=== PATIENT | female | born 1935 | race Hispanic/Latino ===

== ENCOUNTER 2023-05-20 11:57 | Inpatient (IN) | payer OTHER ==
[~2023-05-20] VITALS: Ht 144.8 cm; Wt 68.7 kg
[~2023-05-20 11:57] MED LIST: INSLAN SQ; LISI5TAB21 PO; METF-444 PO; SIMV40TA59 PO
[2023-05-20] MEDS ORDERED: ZOSYN 3.375GM+NS 50ML 50 ML IVPB ONE ×2 (17:00)
[2023-05-20] MEDS ORDERED: LEVOFLOXACIN 750 MG/D5W 150 ML 150 ML IV ONE ×2 (17:00)
[2023-05-20] MEDS ORDERED: METRONIDAZOLE 500MG/100ML BAG 100 ML IVPB ONE ×2 (17:32)
[2023-05-20] MEDS ORDERED: IOHEXOL-350 75 ML VIAL IV ONE ×2 (18:03)
[2023-05-20] MEDS ORDERED: 0.9%NACL 1000ML 1,000 ML IV ONE ×2 (20:00)
[2023-05-20] MEDS ORDERED: FAMOTIDINE 20MG TAB PO ONE ×2 (20:22)
[2023-05-21] MEDS ORDERED: MORPHINE 2 MG SYG IVP ONE ×6 (01:02→13:15)
[2023-05-21] MEDS ORDERED: METRONIDAZOLE 500MG/100ML BAG 100 ML IVPB ONE ×4 (06:46→13:13)
[2023-05-21] MEDS ORDERED: INSULIN HUMULIN R 100 UNIT/ML 3ML SQ ONE ×5 (06:47→11:34)
[2023-05-21] MEDS ORDERED: ACETAMINOPHEN 325 MG TAB PO ONE ×2 (07:11)
[2023-05-21] MEDS ORDERED: LEVOFLOXACIN 250 MG/D5W 50ML 50 ML IVPB ONE ×2 (10:26)
[2023-05-21] MEDS ORDERED: LABETALOL 20MG VIAL IV ONE ×2 (10:27)
[2023-05-21 20:00] VITALS: BP 144/59; PULSE 82; RESP 17; O2SAT 98
[2023-05-21] MEDS ORDERED: LABETALOL 20MG VIAL IV PRN (23:00)
[2023-05-21] MEDS ORDERED: DEXTROSE 50%-WATER 50 ML DISP.SYRIN IV PRN (23:00)
[2023-05-21] MEDS ORDERED: ONDANSETRON 4MG INJ IVP PRN (23:00)
[2023-05-21] MEDS ORDERED: ACETAMINOPHEN 325 MG TAB PO PRN ×2 (23:00)
[2023-05-21] MEDS ORDERED: LACTULOSE 20 GM/30 ML UDCUP PO PRN (23:00)
[2023-05-21] MEDS: 0.9%NACL 1000ML 1,000 ML IV SCH (23:48)
[2023-05-21] MEDS: METRONIDAZOLE 500MG/100ML BAG 100 ML IVPB SCH (23:48)
[2023-05-21] MEDS: FAMOTIDINE 20MG TAB PO SCH (23:48)
[2023-05-22] VITALS (8 sets, daily range): BP systolic 122–169; BP diastolic 49–73; PULSE 72–90; RESP 16–20; O2SAT 97–99
[2023-05-22] MEDS: METRONIDAZOLE 500MG/100ML BAG 100 ML IVPB SCH ×3 (05:57→21:01)
[2023-05-22] MEDS: INSULIN R NPO SS1/2 SQ SCH ×5 (06:11→21:01)
[2023-05-22] MEDS ORDERED: INSULIN HUMULIN R 100 UNIT/ML 3ML SQ ONE (06:47)
[2023-05-22] MEDS: 0.9%NACL 1000ML 1,000 ML IV SCH ×2 (09:00→18:46)
[2023-05-22 09:02] LABS: HEMATOCRIT 38.7 % (36-48); LYMPHOCYTES % (AUTO) 17.3 % (21.0-51.0); MEAN CORPUSCULAR HEMOGLOBIN 27.9 pg (27.0-33.0); MEAN CORPUSCULAR HGB CONC 32.6 g/dL (32.0-36.0); MEAN CORPUSCULAR VOLUME 85.6 fL (79-99); NEUTROPHILS % (AUTO) 76.5 % (40.0-77.0); PLATELET COUNT (AUTO) 430 K/uL (130-400); RED BLOOD CELL COUNT(AUTO) 4.52 MIL/uL (4.00-5.50); RED CELL DISTRIBUTION WIDTH 14.6 % (11.0-15.5); WHITE BLOOD COUNT (AUTO) 24.2 K/uL (4.8-10.8)
[2023-05-22 09:03] LABS: BASOPHILS # (AUTO) 0.14 K/uL (0.00-0.20); BASOPHILS % (AUTO) 0.6 % (0.0-5.0); EOSINOPHILS % (AUTO) 0.8 % (0.0-8.0); IMMATURE GRANULOCYTE ABSOLUTE 0.19 K/uL (0-1); LYMPHOCYTES # (AUTO) 4.2 K/uL (1.0-4.8); NEUTROPHILS # (AUTO) 18.5 K/uL (1.8-7.7)
[2023-05-22 09:07] LABS: APPEARANCE,URINE CLEAR (CLEAR); COLOR,URINE YELLOW (YELLOW); PH,URINE 5.5 (5.0-8.0)
[2023-05-22 09:08] LABS: BILIRUBIN,URINE NEGATIVE (NEGATIVE); GLUCOSE, URINE (UA) >=1000 mg/dL (NEGATIVE); KETONES,URINE 15 mg/dL (NEGATIVE); NITRATE,URINE NEGATIVE (NEGATIVE); OCCULT BLOOD,URINE LARGE (NEGATIVE); PROTEIN,URINE >=300 mg/dL (NEGATIVE); UROBILINOGEN,URINE 0.2 mg/dL (0.2-1.0)
[2023-05-22 09:09] LABS: ADD UA MICROSCOPIC YES; ARTIFACT Rare /HPF (0-1); LEUKOCYTE ESTERASE ,URINE TRACE Leu/uL (NEGATIVE); RBC,URINE 51-100 /HPF (0-1)
[2023-05-22 09:11] LABS: BACTERIA,URINE Rare /HPF (None Seen); MUCUS,URINE Rare LPF (None Seen); SQUAMOUS EPITHELIAL CELL,UR Rare /HPF (0-2)
[2023-05-22 09:22] LABS: CREATININE 1.1 mg/dL (0.5-1.5); POTASSIUM 3.9 mmol/L (3.5-5.1)
[2023-05-22 09:24] LABS: ALBUMIN 3.3 g/dL (3.5-5.0); BILIRUBIN,TOTAL 1.2 mg/dL (0.2-1.0); TOTAL PROTEIN, SERUM 7.1 g/dL (6.0-8.3)
[2023-05-22 09:33] LABS: ABG BASE EXCESS -4.6 mmol/L (-2.0-3.0); ABG HCO3 18.7 mmol/L (21.0-28.0); ABG OXYGEN SATURATION 95.3 % (95.0-99.0); ABG PCO2 30 mmHg (32-45); ABG PH 7.409 (7.35-7.450); PO2, ARTERIAL BG 74.6 mmHg (83.0-108.0)
[2023-05-22 09:34] LABS: VENT MODE, BG ROOM AIR (ROOM AIR)
[2023-05-22 09:39] LABS: INFLUENZA TYPE A Negative For Type A (NEGATIVE); INFLUENZA TYPE B Negative For Type B (NEGATIVE); SARS-CoV-2, RNA, NAAT NEGATIVE SARS CoV-2 (NEGATIVE)
[2023-05-22 09:41] LABS: HEMATOCRIT 33.8 % (36-48); MEAN CORPUSCULAR HEMOGLOBIN 27.8 pg (27.0-33.0); MEAN CORPUSCULAR VOLUME 83.3 fL (79-99); RED BLOOD CELL COUNT(AUTO) 4.06 MIL/uL (4.00-5.50); WHITE BLOOD COUNT (AUTO) 22.5 K/uL (4.8-10.8)
[2023-05-22 09:42] LABS: BASOPHILS % (AUTO) 0.2 % (0.0-5.0); IMMATURE GRANULOCYTE ABSOLUTE 0.15 K/uL (0-1); LYMPHOCYTES % (AUTO) 6.9 % (21.0-51.0); MEAN CORPUSCULAR HGB CONC 33.4 g/dL (32.0-36.0); MONOCYTES % (AUTO) 6.1 % (3.0-13.0); NEUTROPHILS % (AUTO) 86.1 % (40.0-77.0); PLATELET COUNT (AUTO) 357 K/uL (130-400); RED CELL DISTRIBUTION WIDTH 14.5 % (11.0-15.5)
[2023-05-22 09:43] LABS: BASOPHILS # (AUTO) 0.05 K/uL (0.00-0.20); LYMPHOCYTES # (AUTO) 1.6 K/uL (1.0-4.8); MONOCYTES # (AUTO) 1.4 K/uL (0.1-1.0); NEUTROPHILS # (AUTO) 19.4 K/uL (1.8-7.7)
[2023-05-22 09:49] LABS: ALBUMIN 2.8 g/dL (3.5-5.0); CREATININE 0.8 mg/dL (0.5-1.5); TOTAL PROTEIN, SERUM 6.3 g/dL (6.0-8.3)
[2023-05-22] MEDS: MORPHINE 2 MG SYG IVP PRN (14:12)
[2023-05-22] MEDS: LEVOFLOXACIN 250 MG/D5W 50ML 50 ML IVPB SCH (17:32)
[2023-05-22] MEDS: FAMOTIDINE 20MG TAB PO SCH (20:59)
[2023-05-23] VITALS (7 sets, daily range): BP systolic 130–152; BP diastolic 60–69; PULSE 70–76; RESP 14–20; O2SAT 98–99
[2023-05-23] MEDS: 0.9%NACL 1000ML 1,000 ML IV SCH ×2 (04:21→15:00)
[2023-05-23] MEDS: METRONIDAZOLE 500MG/100ML BAG 100 ML IVPB SCH ×3 (05:34→21:22)
[2023-05-23] MEDS: INSULIN R NPO SS1/2 SQ SCH (05:38)
[2023-05-23] MEDS: INSULIN HUMULIN R 100 UNIT/ML 3ML SQ SCH ×4 (06:31→20:53)
[2023-05-23] MEDS: LEVOFLOXACIN 250 MG/D5W 50ML 50 ML IVPB SCH (17:21)
[2023-05-23] MEDS: FAMOTIDINE 20MG TAB PO SCH (20:58)
[2023-05-24] VITALS (7 sets, daily range): BP systolic 144–159; BP diastolic 59–73; PULSE 68–79; RESP 15–18; O2SAT 95–98
[2023-05-24] MEDS: 0.9%NACL 1000ML 1,000 ML IV SCH ×3 (00:46→21:00)
[2023-05-24] MEDS: METRONIDAZOLE 500MG/100ML BAG 100 ML IVPB SCH ×2 (05:04→16:51)
[2023-05-24] MEDS: INSULIN HUMULIN R 100 UNIT/ML 3ML SQ SCH ×4 (07:16→21:00)
[2023-05-24] MEDS: LISINOPRIL 5 MG TABLET PO SCH (08:55)
[2023-05-24] MEDS: LEVOFLOXACIN 250 MG/D5W 50ML 50 ML IVPB SCH (16:51)
[2023-05-24] MEDS: MORPHINE 2 MG SYG IVP PRN (16:52)
[2023-05-24] MEDS: FAMOTIDINE 20MG TAB PO SCH (21:31)
[2023-05-25] VITALS (7 sets, daily range): BP systolic 124–149; BP diastolic 67–90; PULSE 66–76; RESP 18–20; O2SAT 96
[2023-05-25] MEDS: METRONIDAZOLE 500MG/100ML BAG 100 ML IVPB SCH ×3 (00:21→13:02)
[2023-05-25 04:37] LABS: BASOPHILS # (AUTO) 0.06 K/uL (0.00-0.20); BASOPHILS % (AUTO) 0.8 % (0.0-5.0); EOSINOPHILS # (AUTO) 0.19 K/uL (0.00-0.70); EOSINOPHILS % (AUTO) 2.6 % (0.0-8.0); HEMATOCRIT 27.6 % (36-48); IMMATURE GRANULOCYTE ABSOLUTE 0.08 K/uL (0-1); LYMPHOCYTES # (AUTO) 1.7 K/uL (1.0-4.8); LYMPHOCYTES % (AUTO) 22.8 % (21.0-51.0); MEAN CORPUSCULAR HEMOGLOBIN 27.4 pg (27.0-33.0); MEAN CORPUSCULAR HGB CONC 32.6 g/dL (32.0-36.0); MEAN CORPUSCULAR VOLUME 83.9 fL (79-99); MONOCYTES # (AUTO) 0.7 K/uL (0.1-1.0); MONOCYTES % (AUTO) 9.9 % (3.0-13.0); NEUTROPHILS # (AUTO) 4.6 K/uL (1.8-7.7); NEUTROPHILS % (AUTO) 62.8 % (40.0-77.0); PLATELET COUNT (AUTO) 298 K/uL (130-400); RED BLOOD CELL COUNT(AUTO) 3.29 MIL/uL (4.00-5.50); RED CELL DISTRIBUTION WIDTH 14.5 % (11.0-15.5); WHITE BLOOD COUNT (AUTO) 7.4 K/uL (4.8-10.8)
[2023-05-25 05:03] LABS: CREATININE 0.6 mg/dL (0.5-1.5); MAGNESIUM 1.5 mg/dL (1.80-2.40); PHOSPHORUS 2.3 mg/dL (2.5-4.9); THYROID STIMULATING HORMONE 0.54 uIU/mL (0.36-3.74)
[2023-05-25 05:05] LABS: POTASSIUM 2.9 mmol/L (3.5-5.1)
[2023-05-25] MEDS ORDERED: POTASSIUM CHLORIDE 20MEQ/100ML 100 ML IV PRN (05:30)
[2023-05-25] MEDS ORDERED: POTASSIUM CHLORIDE 10% ELIXIR 20 MEQ/15 ML UDCUP PO PRN (05:30)
[2023-05-25] MEDS ORDERED: MAGNESIUM 2GM PREMIX 50ML 50 ML IV PRN (05:30)
[2023-05-25] MEDS: KCL 20 MEQ ERTAB PO PRN ×3 (05:35→10:38)
[2023-05-25] MEDS: INSULIN HUMULIN R 100 UNIT/ML 3ML SQ SCH ×3 (06:41→16:30)
[2023-05-25] MEDS: 0.9%NACL 1000ML 1,000 ML IV SCH ×2 (06:41→17:00)
[2023-05-25] MEDS: LISINOPRIL 5 MG TABLET PO SCH (08:26)
[2023-05-25] MEDS ORDERED: METR-172 PO (11:28)
[2023-05-25] MEDS ORDERED: LEVO750T39 PO (11:28)
[2023-05-25 11:39] LABS: MAGNESIUM 2.3 mg/dL (1.80-2.40)
[2023-05-25 11:49] LABS: POTASSIUM 2.9 mmol/L (3.5-5.1)
[2023-05-25] MEDS: LEVOFLOXACIN 250 MG/D5W 50ML 50 ML IVPB SCH (16:50)
== END 2023-05-25 20:20 | disposition home or self-care (01) | DRG 872 ==
LOC: EDH 11:57 → EDHIP 11:58 → EDH 11:59 → 4CH 05-21 20:35
PROVIDERS: ADMIT Hospitalist; ATTEND Hospitalist
DX: A41.9 Sepsis, unspecified organism (principal); K57.32 Diverticulitis of large intestine without perforation or abscess without bleeding; N39.0 Urinary tract infection, site not specified; E03.9 Hypothyroidism, unspecified; E11.9 Type 2 diabetes mellitus without complications; E78.5 Hyperlipidemia, unspecified; I10 Essential (primary) hypertension; Z90.710 Acquired absence of both cervix and uterus
CPT/HCPCS: 36415; 70450; 71045; 74177; 80048; 80053; 81001; 82010; 82550; 82803; 82948; 83605; 83735; 84100; 84132; 84439; 84443; 84484; 85025; 87040; 87088; 87635; 87804; G0378; J1815; J1956; J2270; J2543; J3475; J3490; J7030; Q9967